=== PATIENT | male | born 1965 | race Caucasian/White ===

== ENCOUNTER 2023-11-23 09:57 | Outpatient (REF) | payer OTHER, SELFPAY ==
--- NOTE | ~2023-11-23 | XR_ITS ---
EXAMINATION: XR LUMBOSACRAL SPINE CLINICAL INFORMATION: Dorsalgia. COMPARISON: None available. TECHNIQUE: Frontal and lateral views of the lumbar spine, inclusive of flexion and extension views, were obtained. FINDINGS: There is bony demineralization. There is a mild lumbar dextroscoliosis. There is an age-indeterminate mild T11 anterior wedge compression fracture. At L1-2, there is mild disc space narrowing. At L4-5 and L5-S1, there is marked disc space narrowing. There is no instability with flexion or extension. There is multi-level lumbar endplate and facet arthropathy. The posterior element are intact. The paravertebral soft tissues are unremarkable. XR/XR lumbar spine 4V min IMPRESSION: 1. There is a mild lumbar dextroscoliosis. 2. An age indeterminate mild T11 anterior wedge compression fracture is seen. 3. There is multi-level lumbar degenerative disc disease, most pronounced at L4-5 and L5-S1, where degenerative disc disease is marked. Electronically signed by: Khanh Merino MD 12/17/2023 06:45 PM EDT
== END 2023-11-23 09:58 | disposition home or self-care (01) ==
LOC: HO.HOSX 09:57
PROVIDERS: PCP Physical Medicine & Rehabilitation; Visit Provider Physician Assistant
DX: M54.9 Dorsalgia, unspecified (principal)
CPT/HCPCS: 72110

== ENCOUNTER 2023-11-23 09:57 | Outpatient (AMB) | payer OTHER, SELFPAY ==
--- NOTE | 2023-11-23 10:12 | A.SPINEOV_ITS ---
Intake Visit Reasons: Lumbar pain Intake Note: Mr. Mccollum is here today c/o low back pain. Barrel Roller Required: No Allergies bupropion [From Wellbutrin] Allergy (Unknown, Verified 11/23/23 10:26) Unknown Assessment & Plan Assessment & Plan (1) Back pain: Code(s): M54.9 - Dorsalgia, unspecified Category: Medical Plan Dear Dr. Ogden Thank you for referring Mr. Mccollum to our office today. He is a 58-year-old talley with Parkinson's disease who has had chronic right-sided low back pain for years. It will radiate from his low back down into his right medial thigh underneath his buttock down into his medial knee region and then down into his medial calf region. He has been through numerous rounds of conservative treatment for this. He used to go to [facility], underwent physical therapy, chiropractic as well as at least 20 or so cortisone injections at that institution. He believes some of them were SI joint injections but some of them could have been for other things. He is not sure. He has been to your office in his undergone serial injections to the SI joint that have given him relief. He has tried zviu-hif-yldbdsa pain medications like Tylenol, leave, anti-inflammatories. Recently trialed on tramadol which did not help. He more recently had a flare-up in the last few months which has left him basically unable to work. He has tried the SI joint belt. It does help to some degree but he can not use it all day, so it does have some limited efficacy. His pain is aggravated with standing and activity. He is here today to be considered for SI joint fusion. PMH: Parkinson's disease diagnosed last year, other than that he has had rotator cuff surgery but has had no major medical problems, heart issues, strokes, vascular problems pulmonary issues, GI issues, coagulopathies etc.. Social hx: He does not smoke cigarettes or marijuana but does use alcohol relatively frequently but not every day. Medications: He takes amantadine and Sinemet in addition to gyit-oxf-hhbpuym pain medications as needed. He was also taking tramadol 1 point but it did not help. Allergies: Bupropion Physical exam: Awake alert oriented no acute distress, he is somewhat bradykinetic and as a right tremor in his hand he is able to stand up out of a chair, demonstrate pain over his right SI joint, positive finger Jcarlos test, positive ipsilateral MOUNIKA sign, positive Gaenslen. He did also have positive straight leg raise however giving him tingling down his right leg. Imaging review: He is a lumbar MRI from 2021 and this shows severe disc degeneration at L4-5 and L5-S1. There is narrowing of the lateral recess at L4- 5 as well as moderate to severe right L5 foraminal stenosis. Impression: 58-year-old talley with Parkinson's disease presents with a multiyear history of right-sided low back pain which will radiate under his right glute into his right medial thigh, right medial knee and into his right medial calf region. The back pain in the leg pain do come on simultaneously. He has been diagnosed with SI joint instability and has undergone multiple injections at your office with good relief of his pain. He has also tried the SI joint belt which has given him some relief but he has difficulty wearing it all day and being active with it on. He has also tried all the usual typical conservative treatment options. These are all listed above. He also has positive physical exam findings suggesting for SI joint. We discussed the fact that he also has severely degenerative discs at L4-5 and L5-S1 with foraminal stenosis on the right at L5. It is well-known that these to set of symptoms can overlap and some of his pain may be coming from his low back issues but in light of the physical exam findings in the response to the injections, typically Dr. Luther would offer the patient an SI joint fusion as long as they are aware that there may be some residual symptoms that are generated by the lumbar pathology. I am going to get a set of standing flexion-extension x-rays just as a precaution. I will find out if Dr. Luther would like a new MRI before we schedule surgery. We did spend some time discussing the Transfasten approach to the SI joint fusion as well as recovery. He understands he will need to be off his leg for 3 weeks using crutches. All the pertinent risks and benefits were discussed. Once I have a chance to finalize everything with Dr. Luther I will get back to the patient. Thank you for allowing us to care for your patient. The total time spent with this visit with this patient was 45 minutes reviewing history, physical exam, lumbar imaging review, and implementation of treatment plan or further diagnostic testing Kaiden Ltuher MD,PhD [facility] Orders: Orders XR lumbar spine 4V min Today M54.9 - Dorsalgia, unspecified Coding Level of Care Code New Pt Level 4 (00365) Diagnoses Back pain M54.9
== END 2023-11-23 11:25 | disposition home or self-care (01) ==
PROVIDERS: PCP Physician Assistant; Referring Provider Physical Medicine & Rehabilitation; Visit Provider Physician Assistant
DX: M54.9 Dorsalgia, unspecified (principal)
CPT/HCPCS: 99204

== ENCOUNTER 2023-12-21 08:26 | Outpatient (AMB) | payer OTHER, SELFPAY ==
--- NOTE | 2023-12-21 08:46 | A.SPINEOV_ITS ---
Intake Visit Reasons: discuss plan Intake Note: Mr. Mccollum is here today to discuss next step. Fisher Sponge Hooking Required: No Allergies bupropion [From Wellbutrin] Allergy (Unknown, Verified 11/23/23 10:26) Unknown Assessment & Plan Assessment & Plan (1) Chronic right SI joint pain: Code(s): M53.3 - Sacrococcygeal disorders, not elsewhere classified; G89.29 - Other chronic pain Category: Medical (2) Scoliosis of lumbar region due to degenerative disease of spine in adult: Code(s): M41.56 - Other secondary scoliosis, lumbar region Category: Medical Plan Dear colleague, On 12/21/2023, I saw for follow-up Jose Juan Mccollum for right-sided pain in the SI joint region radiating down his right leg. He was previously seen by Kaiden denis and comes in today to meet me and to discuss possible surgery. He states that he initially responded well to SI joint injections. He is wearing an SI joint belt that provides relief. To make matters more difficult, he also has significant degeneration of the lumbar spine at L4-5 and L5-S1 with a unilateral collapse at L4-5 causing a deformity at this level. The differential diagnosis for his symptoms is lumbar radiculopathy due to the lumbar deformity. I think currently the symptoms at physical exam and tests are pointing towards the SI joint and a right SI joint fusion seems to be very reasonable. The patient is aware that he might need a 2 level fusion L4-S1 if the SI joints fusion is not providing the expected relief. We will need a new MRI of the lumbar spine at that time. I scheduled the patient for February 06 for a right SI joint fusion. He will get clearance from his primary care physician. I also wrote him an out of work note until 6 weeks after the surgical date. I spent 25 minutes in his consult to review imaging and to discuss the plan of care. Rui Luther MD, PhD Spine Fellowship Trained Neurosurgeon Director, [facility] [place] Coding Level of Care Code Est Pt Level 3 (04924) Diagnoses Chronic right SI joint pain M53.3; G89.29 Scoliosis of lumbar region due to degenerative disease of spine in adult M41.56
== END 2023-12-21 09:11 | disposition home or self-care (01) ==
PROVIDERS: PCP Physical Medicine & Rehabilitation; Visit Provider Neurological Surgery
DX: M53.3 Sacrococcygeal disorders, not elsewhere classified (principal); G89.29 Other chronic pain; M41.56 Other secondary scoliosis, lumbar region
CPT/HCPCS: 99213

== ENCOUNTER → 2023-12-21 08:26 | Outpatient (BNVA) | payer OTHER, SELFPAY | PROVIDERS: PCP Physical Medicine & Rehabilitation; Visit Provider Neurological Surgery ==

== ENCOUNTER 2024-01-17 14:06 | Outpatient (REF) | payer OTHER, SELFPAY ==
--- NOTE | ~2024-01-17 | CT_ITS ---
EXAMINATION: CT PELVIS WITHOUT CONTRAST CLINICAL INFORMATION: Sacrococcygeal disorders, not elsewhere classified. COMPARISON: None available. TECHNIQUE: Helical scanning was performed with submillimeter collimation through the pelvis. Sagittal and coronal multiplanar 2-D reconstructions were obtained. This CT examination was performed using dose optimization techniques as appropriate, variously including the following: *Automated exposure control *Adjustment of mA and/or kV according to patient size (this includes techniques or standardized protocols for targeted exams where dose is matched to indication/reason for exam; i.e. extremities or head) *Use of iterative reconstruction technique DLP: 433 mGy-cm FINDINGS: BONES/JOINTS: Sacroiliac joints: Normal. Right hip joint: Normal. Left hip joint: Mild osteoarthritis manifested by small subchondral cysts along the posterior superior acetabulum. No joint space narrowing. Symphysis pubis: Normal. Remaining bones in the pelvis normal. There is severe multilevel degenerative disc changes with disc space narrowing and vacuum disc phenomenon with endplate osteophytes at the L4-L5 and L5-S1 levels. The facet joints at these levels are normal. Muscles/tendons: Normal. There is a small left fat-containing inguinal hernia. Minimal arterial calcification. Diverticulosis without diverticulitis of the distal colon. Distal ureters and bladder normal. Prostate unremarkable. CT/CT bony pelvis IMPRESSION: 1. Mild osteoarthritis of the left hip. 2. Severe degenerative disc disease at L4-L5 and L5-S1 incidentally noted. 3. Small fat-containing left inguinal hernia. Electronically signed by: Juaquin Lynn MD 01/18/2024 10:58 AM EDT
== END 2024-01-17 14:07 | disposition home or self-care (01) ==
LOC: HO.CT 14:06
PROVIDERS: PCP Physician Assistant; Visit Provider Physician Assistant
DX: M53.3 Sacrococcygeal disorders, not elsewhere classified (principal); G89.29 Other chronic pain
CPT/HCPCS: 72192

== ENCOUNTER 2024-02-22 14:37 | Outpatient (AMB) | payer OTHER, SELFPAY ==
--- NOTE | 2024-02-22 16:12 | A.SPINEOV_ITS ---
Intake Visit Reasons: MRI f/u Intake Note: Mr. Mccollum is here today to F/u on his MRI results. Human Resource Statistician Required: No Allergies bupropion [From Wellbutrin] Allergy (Unknown, Verified 02/22/24 16:17) Unknown Assessment & Plan Assessment & Plan (1) Lumbar stenosis: Code(s): M48.061 - Spinal stenosis, lumbar region without neurogenic claudication Category: Medical Plan Mr Mccollum is here to follow-up on his MRI done at [facility]. It shows that he has severe stenosis at L4-5 with a right-sided disc bulge compressing the lateral recess and the L5 nerve, in addition to severe right L5 foraminal stenosis. Dr. Luther and I reviewed the films and we discussed his symptoms with him at length. He does have a fairly classic L5 radiculopathy which has been part of his symptom complex all along. We had suspected this might be part of the problem but the MRI was worse than we had suspected. He did have an L4-5 epidural last week done with Dr. Ogden that did give him relief for 2 days and he was very pleased with the responsive that but unfortunately the affect her sh ort live. As outlined in our previous notes, he has been through physical therapy at [facility]. He has been through injections, slao-tia-daygnjz pain medication trials and all the usual standard treatments. Dr. Luther believes he is a good candidate for right L4-5 decompression and right L5 foraminotomy. I tentatively scheduled him for March 18. He understands that the goal is to improve the leg pain and not as chronic back pain. That would require spinal fusion and he is not ready to commit to that, which is certainly reasonable given that he had such a nice response to the L4-5 epidural. Pt was given risk and benefits of surgery including but not limited to infection, hematoma , nerve injury,durotomy, weakness,bowel/bladder injury, persistent pain, [] as well as the option to continue with conservative treatment and patient wishes to proceed with surgery. Pt is aware they should stop their motrin, aspirin 7 days prior to surgery. All questions were answered to the best of our ability. If there is anything about this patients medical history that we have overlooked or concerns you have about us proceeding with surgery we would appreciate any input you can offer. Total amount of time spent in this visit was 20 minutes in discussion of symptoms, [] imaging results and subsequent plan of care Kaiden Luther MD,PhD [facility] Coding Level of Care Code Est Pt Level 3 (34231) Diagnoses Lumbar stenosis M48.061
== END 2024-02-22 15:29 | disposition home or self-care (01) ==
LOC: HO.HNS 14:37
PROVIDERS: PCP Physician Assistant; Visit Provider Physician Assistant
DX: M48.061 Spinal stenosis, lumbar region without neurogenic claudication (principal)
CPT/HCPCS: 99213

== ENCOUNTER → 2024-02-22 14:37 | Outpatient (BNVA) | payer OTHER, SELFPAY | PROVIDERS: PCP Physician Assistant; Visit Provider Physician Assistant ==

== ENCOUNTER 2024-02-25 10:35 | Outpatient (AMB) | payer OTHER, SELFPAY ==
--- NOTE | 2024-02-25 10:40 | A.OFFVIS_ITS ---
Vital Signs 3 02/25/24 10:42 Height 5 ft 9 in Weight 195 lb BMI 28.8 BP 140/70 H Blood Pressure Location Lt brachial Position Sitting Respiration 15 Pulse 86 Pulse Source Pulse Oximeter Pulse Oximetry (%) 96 Oxygen Delivery Method Room Air Intake Visit Reasons: CONSULT FOR POSSIBLE PNS/REF BY DR PHILLIPS Allergies bupropion [From Wellbutrin] Allergy (Intermediate, Verified 03/05/24 10:02) facial swelling (was taking for smoking cessation) Medication List - Last Reconciled 02/25/24 by Radha Marcelo LPN amantadine HCl 100 mg PO BID carbidopa-levodopa 25-100 mg (Sinemet) 1 tab PO QID carbidopa-levodopa 50-200 mg ER 1 tab PO BEDTIME HPI HPI CONSULT FOR POSSIBLE PNS/REF BY DR PHILLIPS: Details: 58-year-old male who presents today to the office for consult for a peripheral nerve stimulator device. He has a history of Parkinson's disease. He reports chronic mid to right-sided low back pain that started about 20 years ago. The pain radiates from his right low back down into his right medial thigh underneath his buttock down into his medial knee region and then down into his medial calf region. he reports numbness and pins and needle sensations in his leg. His pain is aggravated with standing and activity. He has been through numerous rounds of conservative treatment for this. He used to go to [facility], underwent physical therapy, chiropractic as well as at least 20 or so cortisone injections at that institution. He believes some of them were SI joint injections but some of them could have been for other things. He is not sure. He had received four injections to the SI joint two on each sides that have given him relief by Dr. Ogden. He has tried pyym-qqf-lzfqazx pain medications like Tylenol, leave, anti-inflammatories. He trialed on tramadol, which did not help. He more recently had a flare-up in the last few months which has left him basically unable to work. He has tried the SI joint belt. It does help to some degree but he cannot use it all day, so it does have some limited efficacy. He is scheduled for a right SI joint fusion on March 18, 2024. [facility] Medical History (Updated 03/11/24 @ 14:19 by Jaron Osullivan MD) Hyperlipidemia Other cervical disc degeneration at C5-C6 level Pulmonary emphysema Coronary arteriosclerosis Muscle atrophy Arthritis Heartburn RBBB (right bundle branch block) Parkinson disease Back pain Scoliosis Lumbar stenosis Surgical History (Updated 03/05/24 @ 10:07 by Francesca Kapadia RN) H/O colonoscopy Hx of repair of rotator cuff Social History Are you a primary youth care professional to a significant other at home: No Do you presently have visiting nurse or other home services: No Comment: uses cane occasionally Patient Tobacco Use Status: Former Tobacco user Tobacco use type: Cigarette Years Smoked: 35 Use of substances other than those prescribed or required for medical reasons: Yes Substance Use Type Other:: oral CBD, THC gummies (has not used since 12/2023) Substance Use Frequency: Occasionally Have you been hit, kicked, punched, or otherwise hurt by someone within the past year? If so, by whom?: No Spiritual Healthcare Practices: none Adventism Healthcare Practices: none Cultural Healthcare Practices: none Are you DNR?: Yes Advance Directives Information Provided: Yes (as above noted) Advance Directives on File: No Recently lost weight without trying: No Eating poorly because of decreased appetite: No Nutrition Risks: No Nutritional Risk Poor oral hygiene: No (one cap left upper/one extracted tooth) Review of Systems Const All systems reviewed & are unremarkable except as noted in HPI and below Physical Exam Vital Signs: Last Vital Signs Pulse 86 02/25/24 10:42 Resp 15 02/25/24 10:42 BP 140/70 H 02/25/24 10:42 Pulse Ox 96 02/25/24 10:42 Oxygen Delivery Method Room Air 02/25/24 10:42 BMI result Body Mass Index 28.8 General: Appears afebrile. Alert and oriented. Mood and affect appropriate. Follows and participates in conversation appropriately. Respiratory effort is unlabored. Able to transition from sit to stand unassisted. Ambulates with bilaterally normal heel strike and toe off. Rising?up?from?a?sitting?position?reproduces pain?in?his?lower?back. Axial?rotation?cause stiffness. Bending?forward?to?a?30??angle?reproduces?pain?in?the?lower?back. Bending?backward reproduces?sharp?pain?in?the?lower?back?area. Results Reviewed Results Reviewed: 02/11/24: MR LUMBAR SPINE. Assessment & Plan Assessment & Plan (1) Lumbar stenosis: Code(s): M48.061 - Spinal stenosis, lumbar region without neurogenic claudication Category: Medical (2) Scoliosis of lumbar region due to degenerative disease of spine in adult: Code(s): M41.56 - Other secondary scoliosis, lumbar region Category: Medical (3) Vertebrogenic low back pain: Code(s): M54.51 - Vertebrogenic low back pain Category: Medical Plan I had a long discussion with the patient about potential vertebrogenic source of his low back pain that is worse with anterior column and axial loading. He is scheduled for a decompression surgery later this month, which will take care of neuropathic and neural compression-related symptoms. I counseled him that for his residual low back pain he will likely need ablation of the basi-vertebral nerves. I also discussed conservative measures, including swimming, traction, and inversion table therapy to reduce the weight burden on his degenerating discs. Patient expressed understanding and will follow up after his decompression surgery for potential basi-vertebral nerve ablation at L3-L4-L5-S1 levels. Scribed for Dr. Osullivan by Dion Riggins, medical center director, on 02/25/2024. I, Dr. Osullivan, have personally reviewed and agree with the information entered by the scribe. Coding Level of Care Code New Pt Level 4 (93528) Diagnoses Lumbar stenosis M48.061 Scoliosis of lumbar region due to degenerative disease of spine in adult M41.56 Vertebrogenic low back pain M54.51
[2024-02-25 10:42] VITALS: BP 140/70; PULSE 86; RESP 15; O2SAT 96; BMI 28.8
== END 2024-02-25 11:21 | disposition home or self-care (01) ==
LOC: HO.PMC 10:35
PROVIDERS: PCP Physician Assistant; Visit Provider Internal Medicine
DX: M48.061 Spinal stenosis, lumbar region without neurogenic claudication (principal); M41.56 Other secondary scoliosis, lumbar region; M54.51 Vertebrogenic low back pain
CPT/HCPCS: 99204

== ENCOUNTER → 2024-02-25 10:35 | Outpatient (BNVA) | payer OTHER, SELFPAY | PROVIDERS: PCP Physician Assistant; Visit Provider Internal Medicine ==

== ENCOUNTER 2024-03-18 05:40 | Day surgery (SDC) | payer OTHER, SELFPAY ==
[2024-03-05 10:11] VITALS: BP 161/87; PULSE 65; RESP 18; O2SAT 97; BMI 29.4
[2024-03-18] VITALS (7 sets, daily range): BP systolic 120–147; BP diastolic 84–94; PULSE 72–83; RESP 16–18; TEMP 36.6–37.1; O2SAT 97; BMI 29.5
[2024-03-18] MEDS: Gabapentin 300 MG CAPSULE PO (06:25)
[2024-03-18] MEDS: methocarbamoL 750 MG TABLET PO (06:25)
[2024-03-18] MEDS: Lactated Ringers 1,000 ML 100 ML IVCONT (06:37)
--- NOTE | 2024-03-18 06:58 | MHC.SHP ---
Pre-Procedural Eval Section A - 24 Hr Update-Section A only Date of Service: 03/18/24 The patient is an INPATIENT: No Changes since office visit: No Cold of Flu in the past 2 weeks, No New Medical Problems, No Changes in Medication and No Patient answered all questions The patient has been examined within 24 hours of the surgical procedure. The History & Physical has been completed within 30 days and I have reviewed it.: No Section B - Complete if H&P > 30 days Chief Complaint: Spinal stenosis, lumbar region without neurogenic Allergies: Allergies Allergy/AdvReac Type Severity Reaction Status Date / Time bupropion [From Wellbutrin] Allergy Intermediate facial Verified 03/18/24 06:16 swelling (was taking for smoking cessation) Review of Systems Sugical H&P ROS: Negative: Constitution, Cardiovascular, Respiratory, Neurological, Psychiatric, Hem-Onc, Allergic/Immunologic, Gastrointestinal, Genitourinary, Musculoskeletal, Integumentary, Endocrine and Eyes/Ears/Nose/Throat Exam Surgical H&P Exam: Normal: HEENT, Normal: Heart, Normal: Lungs, Normal: Extremities, Normal: Abdomen, Normal: Skin and Normal: Neurological (awake, alert,oriented x 3 ) Plan Diagnosis/Plan: Unchanged right L4-5 decompression, right L5 foraminotomy Time Spent With Patient Time: Total time managing care of this patient today __6__ minutes.
--- NOTE | 2024-03-18 07:20 | HO.ANESPROP2 ---
Documented by User: Fariba Lockhart NP 03/05/24 12:05 HPI - Anesthesia Eval Consult details Narrative: 58yo M for Right L4-5 Lumbar Decompression,L5 foraminotomy, 03/18/24 Medically optimized per PCP No recent illness No CP/SOB within limits of back pain parkinson's: follows neuro. RUE tremor PMFSH Active Problems Active Problems: All Active Problems Lumbar stenosis (Acute) Scoliosis of lumbar region due to degenerative disease of spine in adult (Acute) Chronic right SI joint pain (Acute) Back pain (Acute) Past Medical History Medical History (Updated 03/11/24 @ 14:19 by Jaron Osullivan MD) Hyperlipidemia Other cervical disc degeneration at C5-C6 level Pulmonary emphysema Coronary arteriosclerosis Muscle atrophy Arthritis Heartburn RBBB (right bundle branch block) Parkinson disease Back pain Scoliosis Lumbar stenosis Family History Family history of problems with anesthesia: No Surgical History Surgical History H/O colonoscopy Hx of repair of rotator cuff History of Problems with Anesthesia: No Social History Social History Are you a primary care worker to a significant other at home: No Do you presently have visiting nurse or other home services: No Comment: uses cane occasionally Patient Tobacco Use Status: Former Tobacco user Tobacco use type: Cigarette Years Smoked: 35 Use of substances other than those prescribed or required for medical reasons: Yes Substance Use Type Other:: oral CBD, THC gummies (has not used since 12/2023) Substance Use Frequency: Occasionally Have you been hit, kicked, punched, or otherwise hurt by someone within the past year? If so, by whom?: No Spiritual Healthcare Practices: none Denominational Healthcare Practices: none Cultural Healthcare Practices: none Are you DNR?: No Advance Directives: Yes ( Myah) Advance Directives Information Provided: Yes ( Myah) Advance Directives on File: Yes Advance Directives Date on File: 02/29/24 Recently lost weight without trying: No Eating poorly because of decreased appetite: No Nutrition Risks: No Nutritional Risk Poor oral hygiene: No (one cap left upper/one extracted tooth) Meds Allergies Allergy/AdvReac Type Severity Reaction Status Date / Time bupropion [From Wellbutrin] Allergy Intermediate facial Verified 03/18/24 06:16 swelling (was taking for smoking cessation) Home Medications ?Medication ?Instructions ?Recorded ?Confirmed ?Last Taken ?Type amantadine HCl 100 mg tablet 100 mg PO BID 02/25/24 03/18/24 03/18/24 History carbidopa 25 mg-levodopa 100 mg 1 tab PO QID 02/25/24 03/18/24 03/18/24 History tablet (Sinemet) carbidopa ER 50 mg-levodopa 200 mg 1 tab PO BEDTIME 02/25/24 03/18/24 Unknown History tablet,extended release krill 1,000 mg-omega-3 170 mg-dha 1 cap PO QAM 03/05/24 03/18/24 03/11/24 History 50 mg-epa 80 [id number] capsule (krill oil) multivitamin 1 tab PO QAM 03/05/24 03/18/24 Unknown History Exam Height,Weight and Vital Signs: Height 5 ft 9 in Weight 90.265 kg Last Vital Signs Pulse 65 03/05/24 10:11 Resp 18 03/05/24 10:11 BP 161/87 H 03/05/24 10:11 Pulse Ox 97 03/05/24 10:11 O2 Del Method Room Air 03/05/24 10:11 Pertinent Lab Results Pertinent Lab Results: CBC and BMP 01/2024 from outside facility WNL Narrative Narrative: EKG 01/2024 NSR RBBB Airway Mallampati Class: III TM Dist: >3cm Neck ROM: Full Loose/Missing/Broken Teeth: Yes (1 x molar missing) Heart: RRR Lungs: CTAB Assessment and Plan Assessment Anesthesia Assessment: Anesthesia Plan Discussed and PAT Visit Final Anesthetic Review Family History of Problems with Anesthesia: No History of Problems with Anesthesia: No Documented by User: Ashia Bose DO 03/18/24 07:43 [facility] Past Medical History Medical History (Updated 03/11/24 @ 14:19 by Jaron Osullivan MD) Hyperlipidemia Other cervical disc degeneration at C5-C6 level Pulmonary emphysema Coronary arteriosclerosis Muscle atrophy Arthritis Heartburn RBBB (right bundle branch block) Parkinson disease Back pain Scoliosis Lumbar stenosis Family History Family history of problems with anesthesia: No Surgical History Surgical History H/O colonoscopy Hx of repair of rotator cuff History of Problems with Anesthesia: No Social History Social History Are you a primary care worker to a significant other at home: No Do you presently have visiting nurse or other home services: No Comment: uses cane occasionally Patient Tobacco Use Status: Former Tobacco user Tobacco use type: Cigarette Years Smoked: 35 Use of substances other than those prescribed or required for medical reasons: Yes Substance Use Type Other:: oral CBD, THC gummies (has not used since 12/2023) Substance Use Frequency: Occasionally Have you been hit, kicked, punched, or otherwise hurt by someone within the past year? If so, by whom?: No Spiritual Healthcare Practices: none Denominational Healthcare Practices: none Cultural Healthcare Practices: none Are you DNR?: No Advance Directives: Yes ( Mayh) Advance Directives Information Provided: Yes ( Myah) Advance Directives on File: Yes Advance Directives Date on File: 02/29/24 Recently lost weight without trying: No Eating poorly because of decreased appetite: No Nutrition Risks: No Nutritional Risk Poor oral hygiene: No (one cap left upper/one extracted tooth) Meds Allergies Allergy/AdvReac Type Severity Reaction Status Date / Time bupropion [From Wellbutrin] Allergy Intermediate facial Verified 03/18/24 06:16 swelling (was taking for smoking cessation) Home Medications ?Medication ?Instructions ?Recorded ?Confirmed ?Last Taken ?Type amantadine HCl 100 mg tablet 100 mg PO BID 02/25/24 03/18/24 03/18/24 History carbidopa 25 mg-levodopa 100 mg 1 tab PO QID 02/25/24 03/18/24 03/18/24 History tablet (Sinemet) carbidopa ER 50 mg-levodopa 200 mg 1 tab PO BEDTIME 02/25/24 03/18/24 Unknown History tablet,extended release krill 1,000 mg-omega-3 170 mg-dha 1 cap PO QAM 03/05/24 03/18/24 03/11/24 History 50 mg-epa 80 [id number]-lpvqv capsule (krill oil) multivitamin 1 tab PO QAM 03/05/24 03/18/24 Unknown History Exam Exam Date and Time: 03/18/24 07 Height,Weight and Vital Signs: Height 5 ft 9 in Weight 90.265 kg Last Vital Signs Pulse 65 03/05/24 10:11 Resp 18 03/05/24 10:11 BP 161/87 H 03/05/24 10:11 Pulse Ox 97 03/05/24 10:11 O2 Del Method Room Air 03/05/24 10:11 Vital Signs Pulse Rate 65 03/05/24 10:11 Respiratory Rate 18 03/05/24 10:11 Blood Pressure 161/87 H 03/05/24 10:11 Pulse Oximetry 97 03/05/24 10:11 Oxygen Delivery Method Room Air 03/05/24 10:11 Temperature 98.8 F 03/18/24 06:16 Pulse Rate 72 03/18/24 06:16 Respiratory Rate 16 03/18/24 06:16 Blood Pressure 138/86 03/18/24 06:16 Pulse Oximetry 97 03/18/24 06:16 Oxygen Delivery Method Room Air 03/18/24 06:16 Airway Mallampati Class: III TM Dist: >3cm Neck ROM: Full Loose/Missing/Broken Teeth: Yes (1 molar missing) Heart: S1S2 Assessment and Plan Assessment Anesthesia Assessment: Anesthesia Plan Discussed and Chart Reviewed Final Anesthetic Review Family History of Problems with Anesthesia: No History of Problems with Anesthesia: No NPO: Yes ASA Class: II Final Preanesthetic Review: No Changes in Pt Med Stat, Meds/Allgs Chart Reviewed, Consent Obtained/Reviewed and Anes Risks/Benef Reviewed Patient Risk: Low Procedure Risk: Intermediate Anesthetic Plan Anesthetic Plan: GA and Agree w/ Assess. and Plan Disposition: Standard PACU
--- NOTE | 2024-03-18 08:34 | P.OP_ITS ---
Operative Note Operative Note Date of Service: 03/18/24 Narrative: Preoperative Diagnosis: L4-5 spinal stenosis/lateral recess stenosis/neural foraminal stenosis Operation: Right L4-5 Laminotomy, Partial facetectomy and foraminotomy with use of microscope Consent Informed Consent was obtained for this operation. I have explained the nature, purpose and benefits of the operation. I have discussed the risks and benefit of the operation including possible complications or adverse events with patient/family. Alternative(s) were discussed with the patient with their relative benefits and risks as well as the consequences of not accepting the operation were included in obtaining consent. Surgeon: AMANDA HAYS MD, PHD Procedure Assisted By: Kaiden Wong Description of Procedure This patient is suffering from a right L5 radiculopathy due to L4-5 lateral recess stenosis and L5 foraminal stenosis. The patient was offered a decompression. The procedure complications were explained. The patient was consented. The patient was brought to the operating room and endotracheally intubated. The patient was turned in prone position on the Kenneth frame. Prep and drape was done followed by timeout. The Physician licensed loan officer assistant provided access. A mid lumbar incision was made followed by release of the paravertebral muscle on the right side to expose the L4-5 lamina and facet joints. An intraoperative x-ray was obtained to confirm the correct level. The microscope was brought in. I took over the procedure. The high-speed drill was used to do a right L4-5 laminotomy until flavum ligament was reached. A #2 Kerrison was used to expand the laminotomy near flush to the pedicles and to include a partial facetectomy. The flavum ligament was opened and resected with a #3 Kerrison to decompress the underlying thecal sac. The flavum ligament was removed to decompress the lateral recess and the exiting L5 nerve root. A long nerve hook could be easily passed along the medial side of the pedicles as a sign of adequate decompression. The L5 nerve root was then decompressed in the foramen with a foraminotomy Kerrison. The microscope was removed. Hemostasis was done. The physician licensed loan officer assistant close the Incision in 2 layers. Steri-Strips were used to approximate incision. An OpSite with Tegaderm was used to cover the incision. All sponge needle counts were correct. Patient was extubated and transported in stable is to recovery room. Anesthesia: General Estimated Blood Loss (ml): 10 Complications: None Duration of Surgery: 40 minutes Postoperative Plan: Discharge to home
--- NOTE | 2024-03-18 08:39 | P.DS_ITS ---
DS: Providers Provider Date of Service: 03/18/24 Date of discharge: 03/18/24 Primary care physician: Mercedes Kenny PA-C Admitting clinician: Rui Luther DS: Diagnosis Discharge Diagnosis (1) Lumbar stenosis: Status: Acute DS: Summary Time Attestation Discharge Coordination Time (in mins): 5 Quality: Safe Use of Opioids Does Pt have an Active Cancer Diagnosis on the Problem List?: No Quality: Stroke Does the patient have a stroke diagnosis?: No Physical Exam Vital Signs: Vital Signs: Last Vital Signs Temp 98.8 F 03/18/24 06:16 Pulse 72 03/18/24 06:16 Resp 16 03/18/24 06:16 BP 138/86 03/18/24 06:16 Pulse Ox 97 03/18/24 06:16 O2 Del Method Room Air 03/18/24 06:16 BMI result Body Mass Index 29.5 Discharge Plan Discharge Patient Disposition: Home, Self-Care Referrals: Mercedes Kenny PA-C [Primary Care Provider] - 1 Week Discharge Medications: New docusate sodium [Colace] 100 mg capsule 100 mg PO BID Qty: 20 0RF oxycodone 5 mg tablet 5 mg PO Q4H PRN (Reason: pain) Qty: 20 0RF Rx Instructions: Partial Fill upon patient request. Continued multivitamin Tablet 1 tab PO QAM [id number]-[id number] [krill oil] [id number],224-376-11-80 mg Capsule 1 cap PO QAM amantadine HCl 100 mg tablet 100 mg PO BID carbidopa-levodopa [Sinemet] 25-100 mg tablet 1 tab PO QID carbidopa-levodopa 50-200 mg tablet extended release 1 tab PO BEDTIME Discharge Orders: Discharge Order (Routine); Ordered 03/18/24 Ordered By: Kaiden Simmons Diet: Advance to usual diet Activity on Discharge: As tolerated Activity Restrictions/Additional Instructions: After your spinal surgery we ask you to observe the following restrictions/guidelines: Activity: It is normal to feel some discomfort as you increase your activity, but that will improve with time. We ask you avoid heavy lifting or acitivities that cause pain. As a general rule, 8lbs is a safe limit for lifting right after surgery. Walk as much as you feel comfortable but not to exhaustion. You will feel extra tired the first few days after surgery. Stay well hydrated. It is OK to walk up and down stairs You may return to driving when you are off narcotics (such as vicodin, oxycodone, dilaudid, etc), and you are back to normal functional capacity. If you have any concerns please check with office before driving. Return to work is specific to each patient and each surgery, so please speak with your doctor/PA at first follow up. Please bring paperwork such as FMLA at that time if you need it filled out. Medications: For optimum pain control, it is best to start with a combination of 500 mg of Tylenol every 4 hours with 600 mg of Motrin every 8 hours, and use narcotics as needed in between for breakthrough pain. We will give you a short supply of narcotics after surgery (usually one weeks worth). If you need more please call the office but do not use more than prescri bed. You will need to give our office 48 hours notice if you need narcotics refilled and we do not fill narcotics on weekends or evenings. If you are on a narcotic, it is a good idea to take a stool softener such as colace or senna to avoid constipation If you take blood thinner such as aspirin, Plavix, Coumadin, Effient, Eliquis etc for conditions such as Afib, DVT, Pulmonary embolus, coronary disease, stents etc please speak with your surgeon about specific details as to when you can resume these medications. You can resume NSAIDs on post op day 1 (eg: Motrin, Naproxen, etc). Follow up: Please call the office, , after surgery to arrange a 3 week follow up for wound check. Wound Care: You may remove your dressing on the first day after surgery. ?You may ?leave open to air. Please do not remove the steri strips underneath. they will fall off on their own in one week. IT IS NORMAL FOR THE WOUND TO OOZE OR BE BLOODY FOR A FEW DAYS AFTER SURGERY. ?IF THIS HAPPENS JUST PLACE NEW DRESSING OVER IT TO AVOID STAINING CLOTHES. You may shower on post op day # 1 We ask that you do not let the water soak the wound. If it does get wet, just towel dry lightly. Please do not scrub your incision or place any type of chemical/ointment on the wound. No tub baths, pools or jacuzzis for one month. If you have any leaking or redness from your wound, or fevers, please call office Print Language: [place]
== END 2024-03-18 10:07 | disposition home or self-care (01) ==
PROVIDERS: PCP Physician Assistant; Visit Provider Neurological Surgery
PROC: (CPT 63047; principal; 2024-03-18 07:30)
DX: M48.061 Spinal stenosis, lumbar region without neurogenic claudication (principal); G89.29 Other chronic pain; M54.16 Radiculopathy, lumbar region; G20.A1 Parkinson's disease without dyskinesia, without mention of fluctuations; M41.9 Scoliosis, unspecified; I45.10 Unspecified right bundle-branch block; J43.9 Emphysema, unspecified; Z79.899 Other long term (current) drug therapy; Z88.8 Allergy status to other drugs, medicaments and biological substances; Z98.890 Other specified postprocedural states; Z87.891 Personal history of nicotine dependence
CPT/HCPCS: 63047; J0131; J0690; J1100; J1171; J1885; J2003; J2250; J2371; J2405; J2704; J3010

== ENCOUNTER → 2024-03-18 05:40 | Outpatient (BNV) | payer OTHER, SELFPAY | PROVIDERS: PCP Physician Assistant; Visit Provider Neurological Surgery | DX: M48.062 Spinal stenosis, lumbar region with neurogenic claudication (principal) | CPT/HCPCS: 63047; 99499 ==

== ENCOUNTER 2024-04-08 13:34 | Outpatient (AMB) | payer OTHER, SELFPAY ==
--- NOTE | 2024-04-08 13:35 | HO.SPINEOV ---
Intake Visit Reasons: 1st post op Intake Note: Mr. Mccollum is here today for his 1st post op. Concession Attendant Required: No Allergies bupropion [From Wellbutrin] Allergy (Intermediate, Verified 04/08/24 13:36) facial swelling (was taking for smoking cessation) Assessment & Plan Assessment & Plan (1) Lumbar stenosis: Code(s): M48.061 - Spinal stenosis, lumbar region without neurogenic claudication Category: Medical Plan Procedure: Right L4-5 Laminotomy, Partial facetectomy and foraminotomy Jose Juan comes in today for his first post-op visit after having a right L4-5 lumbar decompression completed by Dr. Luther. To recap he was initially evaluated in clinic for right-sided low back pain which will radiate under his right glute into his right medial thigh, right medial knee and into his right medial calf region. He had good resolution of his shooting pain, but still reports some waxing and waning burning / tingling in his low back, with pain flare ups throughout the week that do subside. We discussed the post-operative healing course and I answered all of his questions to the best of my ability. No new neurological deficits. Patient is able to ambulate well, rises from a seated position without difficulty. Incision sites are closed, well healing, with no signs of drainage. We will follow-up with the patient in 6 weeks for their 2nd postoperative visit. Gio Luther MD,PhD [facility] Coding Level of Care Code Global (95594) Diagnoses Lumbar stenosis M48.061
== END 2024-04-08 14:23 | disposition home or self-care (01) ==
PROVIDERS: PCP Physician Assistant; Visit Provider Physician Assistant
DX: M48.061 Spinal stenosis, lumbar region without neurogenic claudication (principal)
CPT/HCPCS: 99024

== ENCOUNTER → 2024-04-08 13:34 | Outpatient (BNVA) | payer OTHER, SELFPAY | PROVIDERS: PCP Physician Assistant; Visit Provider Physician Assistant ==